=== PATIENT | male | born 1980 | race Hispanic/Latino ===

== ENCOUNTER 2021-09-06 00:03 | Observation (INO) | payer MEDICAID, OTHER ==
[2021-09-06] MEDS ORDERED: Acetaminophen 325 MG TAB PO PRN (00:28)
[2021-09-06] MEDS ORDERED: Guaifenesin DM 100-10/5 ML UDCUP PO PRN (00:28)
[2021-09-06] MEDS ORDERED: Ondansetron PF 4 MG/2 ML Vial IVP PRN (00:28)
[2021-09-06] MEDS ORDERED: Calcium Carbonate 500 MG ChewTAB PO PRN (00:28)
[2021-09-06 00:29] VITALS: BMI 43.4
[2021-09-06] MEDS ORDERED: Thiamine HCl 200 MG/2 ML VIAL SLOW IVP SCH (01:00)
[2021-09-06] MEDS ORDERED: FLU VACC QS2021-22(6MOS UP)/PF 60 MCG/0.5 ML SYRINGE IM ONE (01:30)
[2021-09-06] MEDS ORDERED: Prevnar 13-Val Conj/PF 0.5 ML SYRINGE IM ONE (01:30)
[2021-09-06] MEDS ORDERED: traMADol HCl 50 MG TAB PO SCH ×2 (03:15→11:15)
[2021-09-06 06:42] LABS: Hemoglobin 7.6 g/dL (13.5-17.5); Mean Corpuscular Hemoglobin 23.5 pg (27.0-33.0); Mean Corpuscular Volume 80.9 fl (81.2-95.1); Mean Platelet Volume 10.5 fl (7.4-10.4); RBC Distribution Width 17.7 % (11.5-14.5); Red Blood Cell (RBC) Count 3.24 10x6/uL (4.32-5.72); White Blood Cell (WBC) Count 2.4 10x3/uL (3.5-10.5)
[2021-09-06 06:46] LABS: Platelet Count 77 10x3/uL (150-450)
[2021-09-06] MEDS ORDERED: Ferrous Sulfate 325 MG TAB PO SCH (08:00)
[2021-09-06 08:28] LABS: MDiff Complete? YES
[2021-09-06 08:36] LABS: Eosinophils 10 % (0-10); Lymphocytes 10 % (21-51); Monocytes 14 % (0-10); Neutrophil 66 % (42-75)
[2021-09-06 08:37] LABS: Platelet Morphology Comment Appears Decreased
[2021-09-06 08:38] LABS: Basophilic Stippling SLIGHT = 1-2 cells (100X) (None Seen); Hypochromia SLIGHT = 6-15 cells (100X) (0-5/hpf)
[2021-09-06] MEDS: Spironolactone 25 MG TAB PO SCH ×2 (08:43→16:36)
[2021-09-06] MEDS: Nicotine 21 MG PATCH TD SCH ×2 (08:46→09:01)
[2021-09-06] MEDS ORDERED: Cyanocobalamin (Vitamin B-12) 1,000 MCG TAB PO SCH (09:00)
[2021-09-06] MEDS ORDERED: Atenolol 25 MG TAB PO SCH (09:00)
[2021-09-06] MEDS ORDERED: Folic Acid 1 MG TAB PO SCH (09:00)
[2021-09-06] MEDS ORDERED: Cholestyramine/Aspartame 4 gm Packet PO SCH (11:00)
[2021-09-06 16:45] VITALS: BP 128/62; TEMP 98
[2021-09-06 17:40] LABS: SARS-CoV-2 PCR by NAA DETECTED (NotDetected)
== END 2021-09-06 19:16 | disposition home or self-care (01) ==
LOC: INTOOBSV 00:03 → CSHTELE 00:03
PROVIDERS: ADMIT Student in an Organized Health Care Education/Training Program; ATTEND Student in an Organized Health Care Education/Training Program
DX: K72.90 Hepatic failure, unspecified without coma (principal); U07.1 COVID-19; R79.89 Other specified abnormal findings of blood chemistry; F19.20 Other psychoactive substance dependence, uncomplicated; K70.9 Alcoholic liver disease, unspecified; K70.30 Alcoholic cirrhosis of liver without ascites; D61.818 Other pancytopenia; K76.6 Portal hypertension; I10 Essential (primary) hypertension; Z79.899 Other long term (current) drug therapy; R41.0 Disorientation, unspecified; Z91.19 Patient's noncompliance with other medical treatment and regimen
CPT/HCPCS: 36415; 82140; 85025; 96374; G0378; J3411; U0003; U0005